=== PATIENT | female | born 1955 | race African-American/Black ===

== ENCOUNTER 2019-06-08 15:07 | Emergency (ER) | payer OTHER ==
--- NOTE | 2019-06-08 17:37 | RAD ---
SACRUM AND COCCYX THREE VIEWS: History: Pain following an injury. FINDINGS: Extensive hardware stabilizing the lumbosacral spine and SI joints. No evidence for an acute fracture or dislocation demonstrated. IMPRESSION: Extensive hardware. No evidence for acute fracture or dislocation. POS: [facility]
--- NOTE | 2019-06-08 17:39 | RAD ---
LUMBAR SPINE THREE VIEWS: History: Injury following a fall with chronic back pain. FINDINGS: Very extensive pedicle screws and rods stabilize the spine from T9 to S2, as well as, intradiscal pro sthesis and anterior post-operative changes at L5, L4, and L3. No acute fracture or dislocation. IMPRESSION: Very extensive hardware of the lower thoracic spine, lumbar spine, and sacrum. No overt acute fractur e or dislocation. POS: [facility]
--- NOTE | 2019-06-08 17:41 | RAD ---
RIGHT ANKLE THREE VIEWS: History: Injury from a fall. FINDINGS: Extensive diffuse soft tissue swelling/fullness of the lower leg, ankle, and visualized foot. No acut e fracture or dislocation. IMPRESSION: Extensive soft tissue swelling without fracture or dislocation. POS: [facility]
--- NOTE | 2019-06-08 17:41 | RAD ---
LEFT ANKLE THREE VIEWS: History: Injury following a fall. FINDINGS: Diffuse soft tissue fullness and swelling of the lower leg and ankle. No acute fracture or dislocatio n. IMPRESSION: Diffuse soft tissue swelling without acute fracture or dislocation. POS: [facility]
== END 2019-06-08 18:02 | disposition home or self-care (01) ==
LOC: ERS 15:07
DX: M54.5 Low back pain (principal); I10 Essential (primary) hypertension; K21.9 Gastro-esophageal reflux disease without esophagitis; W07.XXXA Fall from chair, initial encounter
CPT/HCPCS: 72100; 72220

== ENCOUNTER 2019-06-21 11:27 | Inpatient (IN) | payer OTHER ==
[2019-06-21] MEDS ORDERED: Acetaminophen 500 MG TAB ONE (12:10)
--- NOTE | 2019-06-21 12:29 | RAD ---
LEFT KNEE FOUR VIEWS: HISTORY: Fall. Left knee pain. FINDINGS: Mild degenerative changes are present. No acute fracture or dislocation is identified. No joint eff usion is seen. POS: [facility]
--- NOTE | 2019-06-21 12:30 | RAD ---
RIGHT KNEE FOUR VIEWS: HISTORY: Fall. Right knee pain. FINDINGS: Degenerative changes are present. No acute fracture or dislocation is identified. No joint effusion is seen. POS: [facility]
--- NOTE | 2019-06-21 12:31 | RAD ---
LEFT HIP TWO VIEWS: HISTORY: Trauma. Fall. Left hip pain. FINDINGS: No acute fracture or dislocation is seen. There are postop changes of metallic hardware in the lumba r spine, the sacrum, and the left iliac bone. POS: [facility]
--- NOTE | 2019-06-21 12:33 | RAD ---
RIGHT FOREARM TWO VIEWS: HISTORY: Fall. Right forearm pain. FINDINGS: The right radius and ulna are intact. POS: [facility]
--- NOTE | 2019-06-21 12:34 | CT ---
CT head without contrast: Multiple axial tomograms obtained through the head without IV enhancement. INDICATIONS: Fall with injury to head COMPARISON: None FINDINGS: Ventricles have normal size and position. No evidence of intracranial mass, hemorrhage, edema, or infarct. Visualized sinuses and mastoids appear clear. Bony calvarium appears unremarkable. Small scalp hematoma over the left frontal bone. IMPRESSION: No acute finding
[2019-06-21 13:09] LABS: #Eosinphils 0.1 thou/uL (0.0-0.7); #Lymphocytes 0.9 thou/uL (1.20-3.40); #Monocytes 0.4 thou/uL (0.11-0.59); #Neutrophils 3.3 thou/uL (1.40-6.50); %Basophils 0.2 % (0.0-1.0); %Eosinophils 1.7 % (0.0-10.0); %Lymphocytes 19.2 % (21.0-51.0); %Monocytes 7.9 % (0.0-10.0); %Neutrophils 70.9 % (42.0-75.0); Hemoglobin 11.6 g/dL (12.0-16.0); Mean Corpuscular HGB CONC 31.9 g/dL (32.0-36.0); Mean Corpuscular Hemoglobin 28.2 pg (27.0-31.0); Mean Corpuscular Volume 88.5 fL (78.0-98.0); Mean Platelet Volume 7.1 fL (7.4-10.4); Platelet Count 202 thou/uL (130-400); RBC Distribution Width 11.5 % (11.5-14.5); Red Blood Cell (RBC) Count 4.12 mill/uL (4.20-5.40); White Blood Cell (WBC) Count 4.6 thou/uL (4.8-10.8)
[2019-06-21 14:07] LABS: ALT (SGPT) 20 U/L (8-55); AST (SGOT) 40 U/L (5-34); Acetaminophen Less than 6.0 mcg/mL (10.0-30.0); Albumin 3.7 g/dL (3.4-4.8); Alcohol Less than 10 mg/dL (Less than 10); Alkaline Phosphatase 73 U/L (40-150); Anion Gap 14 mmol/L (10-20); BUN (Urea Nitrogen) 14 mg/dL (9.8-20.1); Bilirubin, Total 1.3 mg/dL (0.2-1.2); CK (CPK) 1606 U/L (29-168); Calc. Creatinine Clearance 0 mL/min (70-130); Carbon Dioxide 21 mmol/L (23-31); Chloride 107 mmol/L (98-107); Estimated GFR-MDRD 89; Glucose 74 mg/dL (80-115); Potassium 3.1 mmol/L (3.5-5.1); Protein, Total 5.7 g/dL (6.0-8.3); Salicylate Less than 8.0 mg/dL (15.0-30.0); Sodium 139 mmol/L (136-145)
[2019-06-21] MEDS ORDERED: Ondansetron ODT 4 MG TAB PO PRN (16:24)
[2019-06-21] MEDS ORDERED: Ondansetron PF 4 MG/2 ML Vial IVP PRN (16:24)
[2019-06-21] MEDS ORDERED: hydrALAZINE 20 MG/ML VIAL SLOW IVP PRN (16:24)
[2019-06-21] MEDS ORDERED: Acetaminophen 325 MG TAB PO PRN (16:24)
[2019-06-21 16:33] VITALS: BMI 30.9
[2019-06-21] MEDS: Sodium Chloride 0.9% 1,000 ML IV SCH (17:34)
[2019-06-21] MEDS ORDERED: Potassium Chloride 20 MEQ TAB PO SCH (18:45)
--- NOTE | 2019-06-21 18:57 | CON ---
DATE OF CONSULTATION: REASON FOR CONSULTATION: Rhabdomyolysis. HISTORY OF PRESENT ILLNESS: This is a 64-year-old female, admitted to the hospital for frequent fall. The patient was noted to have a CK of 1600 after falls. The patient denies no headache, numbness, tingling, or weakness. Denies any nausea, vomiting, or chest pain. PAST MEDICAL HISTORY: Significant for hypertension, history of fall, history of chronic back pain, history of back surgery, history of cholecystectomy, and tubal ligation. SOCIAL HISTORY: No alcohol or drug use. FAMILY HISTORY: Negative for ESRD. ALLERGIES: REVIEWED. MEDICATIONS: Home medications list reviewed. Hospital medication list reviewed. REVIEW OF SYSTEMS: A 15-point review of systems was performed, negative except for positives noted above. GENERAL: HEAD: NECK: No swelling or lumps. NOSE: No epistaxis or discharge. EYES: No diplopia or pain. RESPIRATORY: CARDIOVASCULAR: GASTROINTESTINAL: /LAUNDRY AGENT: MUSCULOSKELETAL: No joint pain. NEUROPSYCHIATIC SYSTEMS: No suicidal ideation. No ideation. SKIN: Denies any rash or ulcer. CONSTITUTIONAL: No fever or chills. PHYSICAL EXAMINATION: CONSTITUTIONAL: The patient is awake and alert. VITAL SIGNS: Pulse 77, breathing 16, and blood pressure 180/82. GENERAL APPEARANCE AND MENTAL STATUS: Fair. HEAD/NECK: Normocephalic. Atraumatic. EYES: EOMI. No deformity. EARS: Clear. No ulcers. NOSE: Intact. No lesions. MOUTH: Clear. No discharge. THROAT: Clear. No exudate. LUNGS: Clear. No crackles. CARDIAC: S1, S2. No rub. ABDOMEN: Benign. Bowel sounds positive. GENITALIA/RECTUM: Garces absent. BACK/EXTREMITIES: Edema 0+. NEUROLOGICAL: Alert and motor intact. SKIN: LYMPHATICS: LABORATORY DATA: Labs show hemoglobin 9.6. Potassium 3.1 and creatinine 0.79. ASSESSMENT AND PLAN: 1. Acute kidney injury, stable. 2. Rhabdomyolysis, due to falls. Recommend hydration. 3. Hypokalemia, recommend 40 mEq of potassium by mouth. 4. Medication based on GFR. Avoid Mobic if clinically indicated. No indication for dialysis. We would recommend continuing normal saline at 100 mL/h. Job ID: [id number]
--- NOTE | 2019-06-21 21:27 | HP ---
PRIMARY CARE PHYSICIAN: Dr. Jostin Jara. CHIEF COMPLAINT: "My legs are getting weak and I fell." HISTORY OF PRESENT ILLNESS: Ms. Lesia Bowen is a pleasant 64-year-old female, who has a history of hypertension and chronic hypokalemia, who also has a history of back problems and fairly recent back surgery back in August of last year. She lives at home primarily on her own and says that she has been having difficulty with her walking in the last 3 months. She says that she has trouble picking up her legs and occasionally she will fall. After she had a redo back surgery in August of 2018, she was actually doing better. Prior to this, she said she was walking bent over after having surgery on her back a few years ago, and then she went to [place] and had what her sister says was a total reconstruction of her back and was doing much better, but then in the last 3 months, her legs have gotten progressively weaker and she has difficulty lifting them and she has been falling. She had been walking with a cane and now is walking with a Rollator walker. She fell again today and was not able to get up for some time. She was brought to the hospital via EMS, where she was found to have an elevated CK as well as low potassium, which is chronically low, and is being admitted for further treatment. The patient denies having any pain in her back, but she does complain of a burning sensation in her feet like her feet are on fire and she says the left is more so than the right. She also complains of swelling in her legs as well, and she says that her primary care physician was in the process of sending her to see a vein specialist in [place], but she did not make it to that appointment because she "got sick." She also was seen in [place] yesterday because she says she had not been eating and had been confused and seeing things that were not there. However, she says she does not think it is an [facility] problem. REVIEW OF SYSTEMS: CONSTITUTIONAL: There have been no fevers or chills, no night sweats, no weight loss. HEENT: She does have an occasional headache after the fall. No visual changes. No sore throat, rhinorrhea, or neck pain. No adenopathy. PULMONARY: No hemoptysis. No cough. No wheezing. CARDIOVASCULAR: She denies any chest pain. No shortness of breath. No PND. No orthopnea. GASTROINTESTINAL: No abdominal pain. No nausea. No vomiting. No change in bowels. GENITOURINARY: No urinary frequency, but she has not made any urine all day today. Prior to that, she denied any urinary retention. No change in bowels. MUSCULOSKELETAL: She complains of both legs being weak, the left more so than the right, and pain in her feet, but no back pain. NEUROLOGIC: She denies any focal weakness, but her sister said she had seizures in her youth and also some type of weakness that they said could have been a stroke, but then everything got better except for her "hearing." SKIN AND INTEGUMENT: No skin changes. No rash. ENDOCRINE: No heat or cold intolerance. PAST MEDICAL HISTORY: Significant for hypertension, hyperlipidemia, TIA, hypokalemia, and schizophrenia, but she says "she has grown out of this." PAST SURGICAL HISTORY: Includes cholecystectomy, right eye surgery, bilateral tubal ligation, and lumbar surgery x2. ALLERGIES: CODEINE, WHICH CAUSED NAUSEA AND HER TO FEEL SHAKY. SOCIAL HISTORY: She lives alone. She had a son who used to live with her, but he has not been there in over a year and a half. She is a nonsmoker and nondrinker. She walks with a walker. FAMILY HISTORY: Significant for mental illness in a brother who had cancer as well as diabetes. CURRENT MEDICATIONS: Include; 1. Lasix 40 mg daily. 2. Pantoprazole 40 mg daily. 3. Meloxicam 15 mg daily. 4. Spironolactone 50 mg daily. 5. Gabapentin 300 mg. 6. Cyclobenzaprine. 7. Tramadol 50 mg as directed. PHYSICAL EXAMINATION: VITAL SIGNS: Her blood pressure was 170/114, heart rate 75, respiratory rate of 18, temperature is 99.1. HEENT: Pupils are equal, round, and reactive. Extraocular muscles are intact. Her sclerae are anicteric. Throat; no erythema, no exudates. NECK: No adenopathy. No bruits. LUNGS: Clear to auscultation. There is no wheezing, no rales, no rhonchi. CARDIOVASCULAR: She has a normal S1 and S2. I did not appreciate an S3 or S4. No murmurs, clicks, or rubs. ABDOMEN: Obese. It is soft, nontender, and nondistended. Positive for bowel sounds. There is no rebound. No guarding. No organomegaly. EXTREMITIES: She has 2+ pitting edema in both lower extremities. No calf tenderness. No significant joint effusions or redness or warmth. NEUROLOGIC: She is moving all of her extremities. Her muscle strength is 5/5 in both her upper and lower extremities. Initially, her legs appeared weak, but if she is distracted, it appears as if it is more related to effort than actual weakness. Her reflexes are 2+ and symmetric. She had palpable dorsalis pedis pulses bilaterally. SKIN AND INTEGUMENT: Other than some chronic venous stasis changes, there are no rashes other than some mycotic nails on her toes. LABORATORY RESULTS: Sodium is 139, potassium 3.1, chloride is 107, CO2 is 21, BUN of 14, creatinine 0.79, glucose is 74. White blood cell count is 4.6, hemoglobin 11.6, hematocrit is 36.5, and platelet count is 202. Her tox screen was negative. She had x-rays of the forearm, hip, and both knees, which showed some mild DJD, but no fractures. CT scan of the brain was negative. ASSESSMENT: 1. This is a pleasant 64-year-old female, who presents to the emergency room with frequent falls and what she describes as progressive lower extremity weakness, this in the setting of having several lumbar surgeries in the past. I think it is reasonable to re-image her back either with a CT or MRI to make sure there is no significant derangement in the lumbar spine that would require being addressed. 2. Persistent hypokalemia, in review of her labs, this dates back as far as 2013 in our records and the concern is for chronic renal insufficiency as a result of this persistent hypokalemia and whether or not it could be some type of hyper-aldosterone type syndrome. We will consult Nephrology to furniture mover helper in diagnosis and management. This may have well been addressed in the past, but I cannot see this in her records and the patient was unable to give me this history. 3. Persistent elevated CK, again unclear the etiology of this, possibly could have been evaluated in the past. We will hydrate her and consider some type of myopathy. 4. Hypertension. It does not appear that she is on any medications for blood pressure. We will need to hold the Lasix and the Aldactone. We will place her on some p.r.n. medications for blood pressure at this time, and we may need to obtain her records from Dr. Jara. 5. She will be placed on deep venous thrombosis as well as gastrointestinal prophylaxis. Job ID: [id number]
[2019-06-22] MEDS: Sodium Chloride 0.9% 1,000 ML IV SCH ×3 (01:45→22:08)
[2019-06-22 05:27] LABS: #Eosinphils 0.1 thou/uL (0.0-0.7); #Lymphocytes 1.1 thou/uL (1.20-3.40); #Monocytes 0.2 thou/uL (0.11-0.59); #Neutrophils 1.6 thou/uL (1.40-6.50); %Basophils 0.7 % (0.0-1.0); %Eosinophils 2.7 % (0.0-10.0); %Lymphocytes 36.7 % (21.0-51.0); %Monocytes 6.2 % (0.0-10.0); %Neutrophils 53.8 % (42.0-75.0); Hemoglobin 10.1 g/dL (12.0-16.0); Mean Corpuscular HGB CONC 33.8 g/dL (32.0-36.0); Mean Corpuscular Volume 88.7 fL (78.0-98.0); Mean Platelet Volume 7.2 fL (7.4-10.4); Platelet Count 159 thou/uL (130-400); RBC Distribution Width 11.3 % (11.5-14.5); Red Blood Cell (RBC) Count 3.36 mill/uL (4.20-5.40); White Blood Cell (WBC) Count 2.9 thou/uL (4.8-10.8)
[2019-06-22 05:47] LABS: Anion Gap 11 mmol/L (10-20); BUN (Urea Nitrogen) 10 mg/dL (9.8-20.1); CK (CPK) 1127 U/L (29-168); Calc. Creatinine Clearance 99 mL/min (70-130); Calcium 8.5 mg/dL (7.8-10.44); Carbon Dioxide 22 mmol/L (23-31); Chloride 111 mmol/L (98-107); Estimated GFR-MDRD Greater than 90; Glucose 95 mg/dL (80-115); Potassium 3.2 mmol/L (3.5-5.1); Sodium 141 mmol/L (136-145)
[2019-06-22] MEDS: Enoxaparin Sodium 40 MG/0.4 ML SYRINGE SC SCH (07:45)
--- NOTE | 2019-06-22 13:03 | PRG ---
DATE OF SERVICE: 06/22/2019 SUBJECTIVE: A 64-year-old female, being seen for rhabdomyolysis and hyperkalemia. The patient denies any nausea, vomiting, or chest pain. OBJECTIVE: CONSTITUTIONAL: The patient is awake and alert. VITAL SIGNS: Pulse 74, breathing 16, and blood pressure 106/77. GENERAL APPEARANCE AND MENTAL STATUS: Fair. HEAD/NECK: Normocephalic. Atraumatic. EYES: EOMI. No deformity. EARS: Clear. No ulcers. NOSE: Intact. No lesions. MOUTH: Clear. No discharge. THROAT: Clear. No exudate. LUNGS: Clear. No crackles. CARDIAC: S1, S2. No rub. ABDOMEN: Benign. Bowel sounds positive. GENITALIA/RECTUM: Garces absent. BACK/EXTREMITIES: Edema 0+. NEUROLOGICAL: Alert and motor intact. SKIN: LYMPHATICS: LABORATORY DATA: Reviewed. ASSESSMENT AND PLAN: 1. Hypokalemia. We will give 40 mEq of potassium. 2. We will also check a magnesium level and aldosterone level. 3. Rhabdomyolysis, improving. 4. Anemia, stable. 5. Chronic kidney disease, stage 1, stable. 6. Medication based on GFR appropriate. Job ID: [id number]
--- NOTE | 2019-06-22 14:04 | PDOC.HOSPP ---
- Subjective Encounter Date: 06/22/19 Encounter Time: 12:30 Subjective: Ms. Bowen was seen today in follow-up of hypokalemia, frequent falls, and rhabdo. She says she feels a little better this afternoon. She says her legs are a little stronger. She still admits to burning pain in the bottom of her feet. - Objective Vital Signs & Weight: Vital Signs (12 hours) Temp Pulse Resp BP BP Pulse Ox 06/22/19 11:28 98.2 F 73 18 106/77 91 L 06/22/19 08:00 94 L 06/22/19 06:56 98.2 F 73 18 106/71 91 L 06/22/19 04:38 98.6 F 67 20 156/80 H 93 L Weight Weight 180 lb Result Diagrams: 06/22/19 04:46 06/22/19 04:46 ROS - Medication Medications: Active Medications Generic Name Dose Route Start Last Admin Trade Name Freq PRN Reason Stop Dose Admin Acetaminophen 650 mg 06/21/19 16:24 06/21/19 17:46 Tylenol PO 650 mg Q4H PRN Administration Headache/Fever/Mild Pain (1-3) Enoxaparin Sodium 40 mg 06/22/19 09:00 06/22/19 07:45 Lovenox SC 40 mg 0900 ARIANA Administration Sodium Chloride 1,000 mls @ 100 mls/hr 06/21/19 16:24 06/22/19 11:52 Normal Saline 0.9% IV 1,000 mls .Q10H [facility] Administration - Exam Eye: PERRL, anicteric sclera Heart: RRR, no murmur, no gallops, no rubs, normal peripheral pulses Respiratory: CTAB, no wheezes, no rales, no ronchi, normal chest expansion, no tachypnea, normal percussion Gastrointestinal: soft, normal bowel sounds Extremities: no cyanosis, no clubbing, 1+ LE edema (bilateral lower extremity edema- improved from yesterday) Hosp A/P (1) Hypokalemia Code(s): E87.6 - HYPOKALEMIA Status: Acute (2) Lumbar disc disease Code(s): M51.9 - UNSP THORACIC, THORACOLUM AND LUMBOSACR INTVRT DISC DISORDER Status: Acute (3) Frequent falls Code(s): R29.6 - REPEATED FALLS Status: Acute (4) HTN (hypertension) Code(s): I10 - ESSENTIAL (PRIMARY) HYPERTENSION Status: Chronic Qualifiers: Hypertension type: essential hypertension Qualified Code(s): I10 - Essential (primary) hypertension - Plan * Hypokalemia- this is chronic- discussed with Dr. Liu- work-up is in progress * Frequent Falls- ? related to lumbar disc disease- MRI is pending * Mild Rhabdo- could be due to hypokalemia- continue to replace K+ * HTN- blood pressure is much improved * Weakness- will start PT, once MRI results are known
[2019-06-23] MEDS ORDERED: Cyclobenzaprine 10 MG TAB PO PRN ×2 (08:10→11:13)
[2019-06-23] MEDS: Enoxaparin Sodium 40 MG/0.4 ML SYRINGE SC SCH (08:49)
[2019-06-23] MEDS: Spironolactone 25 MG TAB PO SCH (08:50)
[2019-06-23] MEDS: Sodium Chloride 0.9% 1,000 ML IV SCH ×2 (08:50→17:12)
[2019-06-23] MEDS ORDERED: Non-Formulary Item 1 EACH (Spironolactone [Spironolactone] 50 MG) PO SCH (09:00)
[2019-06-23] MEDS ORDERED: Gabapentin 300 MG CAP PO SCH ×2 (09:00→21:00)
[2019-06-23 10:01] LABS: Anion Gap 13 mmol/L (10-20); BUN (Urea Nitrogen) 9 mg/dL (9.8-20.1); Calc. Creatinine Clearance 99 mL/min (70-130); Calcium 9.2 mg/dL (7.8-10.44); Carbon Dioxide 26 mmol/L (23-31); Chloride 104 mmol/L (98-107); Estimated GFR-MDRD Greater than 90; Glucose 76 mg/dL (80-115); Sodium 140 mmol/L (136-145)
[2019-06-23 10:08] LABS: Potassium 2.8 mmol/L (3.5-5.1)
--- NOTE | 2019-06-23 10:48 | PDOC.HOSPP ---
- Subjective Encounter Date: 06/23/19 Encounter Time: 10:47 Subjective: Ms. Bowen was seen today in follow-up of leg pain and frequent falls. She continues to complain of some pain in her legs, and feet. No new complaints. MRI was not done due to " too much hardware in her back". - Objective Vital Signs & Weight: Vital Signs (12 hours) Temp Pulse Resp BP Pulse Ox 06/23/19 08:00 94 L 06/23/19 07:23 98.6 F 67 20 173/96 H 94 L Weight Weight 180 lb I&O: 06/22/19 06/23/19 06/24/19 06:59 06:59 06:59 Intake Total 3780 Output Total 4700 Balance -920 Result Diagrams: 06/22/19 04:46 06/23/19 09:31 ROS - Medication Medications: Active Medications Generic Name Dose Route Start Last Admin Trade Name Freq PRN Reason Stop Dose Admin Acetaminophen 650 mg 06/21/19 16:24 06/21/19 17:46 Tylenol PO 650 mg Q4H PRN Administration Headache/Fever/Mild Pain (1-3) Enoxaparin Sodium 40 mg 06/22/19 09:00 06/23/19 08:49 Lovenox SC 40 mg 0900 [facility] Administration Gabapentin 300 mg 06/23/19 09:00 06/23/19 08:49 Neurontin PO 300 mg BID [facility] Administration Sodium Chloride 1,000 mls @ 100 mls/hr 06/21/19 16:24 06/23/19 08:50 Normal Saline 0.9% IV Not Given .Q10H [facility] Pantoprazole Sodium 40 mg 06/23/19 09:00 06/23/19 08:50 Protonix PO 40 mg DAILY [facility] Administration Sodium Chloride 10 ml 06/23/19 09:00 06/23/19 08:50 Flush - Normal Saline IVF Not Given Q12HR [facility] Spironolactone 50 mg 06/23/19 08:00 06/23/19 08:50 Aldactone PO 50 mg QAM-WM [facility]ANA Administration - Exam Eye: PERRL Heart: RRR, no murmur, no gallops, no rubs, normal peripheral pulses Respiratory: CTAB, no wheezes, no rales, no ronchi, normal chest expansion Gastrointestinal: soft, non-tender, non-distended, normal bowel sounds, no palpable masses, no hepatomegaly, no splenomegaly Extremities: no cyanosis, no clubbing, 1+ LE edema (edema has improved + varicose veins, good D.P. pulses bilaterally) Skin: normal turgor, no lesions Hosp A/P (1) Hypokalemia Code(s): E87.6 - HYPOKALEMIA Status: Acute (2) Lumbar disc disease Code(s): M51.9 - UNSP THORACIC, THORACOLUM AND LUMBOSACR INTVRT DISC DISORDER Status: Acute (3) Frequent falls Code(s): R29.6 - REPEATED FALLS Status: Acute (4) HTN (hypertension) Code(s): I10 - ESSENTIAL (PRIMARY) HYPERTENSION Status: Chronic Qualifiers: Hypertension type: essential hypertension Qualified Code(s): I10 - Essential (primary) hypertension - Plan * Hypokalemia- this is chronic- serum aldosterone is pending * Frequent Falls- This may be in part due to medications. Unclear if she is taking Tramadol and Flexeril correctly. MRI was cancelled due to too much hardware in her back. Will have PT/OT due an evaluation. She does not have any worrisome neurological findings which would necessitate urgent MRI. She would best be served by seeing the Orthodist in [place] who performed the most recent Surgery. She would also benefit by seeing an Neurologist who could perform an EMG to test for Peripheral Neuropathy. This can all be achieved outpatient, which I explained to the patient's sister and MPOA on admission. ( EMG's are not performed in hospital at this facility * Mild Rhabdo- could be due to hypokalemia- continue to replace K+ * HTN- blood pressure is much improved * Weakness- will start PT * Home after Potassium level has improved
[2019-06-23] MEDS: Potassium Chloride 20 MEQ TAB PO SCH ×2 (12:27→17:11)
[2019-06-23] MEDS ORDERED: Gabapentin 100 MG CAP PO SCH (22:30)
[2019-06-23] MEDS: traMADol HCl 50 MG TAB PO PRN (22:54)
[2019-06-24] MEDS: Sodium Chloride 0.9% 1,000 ML IV SCH ×3 (06:32→21:19)
[2019-06-24 06:56] LABS: Anion Gap 11 mmol/L (10-20); BUN (Urea Nitrogen) 11 mg/dL (9.8-20.1); Calc. Creatinine Clearance 103 mL/min (70-130); Carbon Dioxide 23 mmol/L (23-31); Chloride 108 mmol/L (98-107); Estimated GFR-MDRD Greater than 90; Glucose 86 mg/dL (80-115); Potassium 3.6 mmol/L (3.5-5.1); Sodium 138 mmol/L (136-145)
[2019-06-24] MEDS: Spironolactone 25 MG TAB PO SCH (08:29)
[2019-06-24] MEDS: Enoxaparin Sodium 40 MG/0.4 ML SYRINGE SC SCH (08:29)
[2019-06-24] MEDS: traMADol HCl 50 MG TAB PO PRN ×2 (08:30→18:42)
[2019-06-24] MEDS: Potassium Chloride 20 MEQ TAB PO SCH ×3 (08:30→17:45)
[2019-06-24] MEDS: Gabapentin 100 MG CAP PO SCH ×2 (08:30→21:19)
--- NOTE | 2019-06-24 18:03 | PDOC.HOSPP ---
- Subjective Encounter Date: 06/24/19 Encounter Time: 13:20 Subjective: Ms. Bowen was seen today in follow-up of leg weakness. She does not have any complaints today. - Objective Vital Signs & Weight: Vital Signs (12 hours) Temp Pulse Resp BP Pulse Ox 06/24/19 16:00 97.7 F 68 20 169/95 H 98 06/24/19 11:41 97.6 F 73 20 162/96 H 96 06/24/19 08:00 94 L 06/24/19 07:25 97.7 F 63 20 170/93 H 94 L Weight Weight 180 lb I&O: 06/23/19 06/24/19 06/25/19 06:59 06:59 06:59 Intake Total 3780 1200 Output Total 4700 1700 2900 Balance -920 -1700 -1700 Result Diagrams: 06/22/19 04:46 06/24/19 06:14 ROS - Medication Medications: Active Medications Generic Name Dose Route Start Last Admin Trade Name Freq PRN Reason Stop Dose Admin Acetaminophen 650 mg 06/21/19 16:24 06/21/19 17:46 Tylenol PO 650 mg Q4H PRN Administration Headache/Fever/Mild Pain (1-3) Enoxaparin Sodium 40 mg 06/22/19 09:00 06/24/19 08:29 Lovenox SC 40 mg 0900 ARIANA Administration Gabapentin 100 mg 06/24/19 09:00 06/24/19 08:30 Neurontin PO 100 mg BID [facility] Administration Sodium Chloride 1,000 mls @ 100 mls/hr 06/21/19 16:24 06/24/19 12:19 Normal Saline 0.9% IV 1,000 mls .Q10H [facility] Administration Pantoprazole Sodium 40 mg 06/23/19 09:00 06/24/19 08:30 Protonix PO 40 mg DAILY ARIANA Administration Potassium Chloride 40 meq 06/23/19 12:00 06/24/19 17:45 K-Dur PO 40 meq TID-WM ARIANA Administration Sodium Chloride 10 ml 06/23/19 09:00 06/24/19 08:30 Flush - Normal Saline IVF Not Given Q12HR [facility] Spironolactone 50 mg 06/23/19 08:00 06/24/19 08:29 Aldactone PO 50 mg QAM-WM [facility] Administration Tramadol HCl 50 mg 06/23/19 10:45 06/24/19 08:30 Ultram PO 50 mg Q6H PRN Administration Moderate to Severe Pain (6-10) - Exam Eye: PERRL, anicteric sclera Heart: RRR, no murmur, no gallops, no rubs, normal peripheral pulses Respiratory: CTAB, no wheezes, no rales, no ronchi, normal chest expansion Gastrointestinal: soft, non-tender, non-distended, normal bowel sounds, no palpable masses, no hepatomegaly, no splenomegaly, no bruit, no guarding Extremities: no cyanosis, no clubbing, 1+ LE edema (+ edema both lower extremities, + varicose veins) Musculoskeletal: normal strength, no muscle wasting Hosp A/P (1) Hypokalemia Code(s): E87.6 - HYPOKALEMIA Status: Resolved (2) Lumbar disc disease Code(s): M51.9 - UNSP THORACIC, THORACOLUM AND LUMBOSACR INTVRT DISC DISORDER Status: Acute (3) Frequent falls Code(s): R29.6 - REPEATED FALLS Status: Acute (4) HTN (hypertension) Code(s): I10 - ESSENTIAL (PRIMARY) HYPERTENSION Status: Chronic Qualifiers: Hypertension type: essential hypertension Qualified Code(s): I10 - Essential (primary) hypertension - Plan * Hypokalemia- this is chronic- serum aldosterone is pending- level is normal today- continue scheduled potassium supplementation * Frequent Falls- Continue PT/OT- I asked her sister to bring in the phine number of her physician in [place], and she could leave it in the room, or leave with the nurse if she was not able to personally come in. She has not yet done this. She did later bring in the name of the physician but not his phone number. The patient herself tells me that the physician in [place] had referred to PT in [place], but she was dropped them, because she was not able to make all the appointments due to transportation issues. At this point- this clearly appears to be a chronic condition, it may be progressive- no other urgent work- up is needed in the hospital- and will pursue penitentiary placement or Rehab * Mild Rhabdo- could be due to hypokalemia- continue to replace K+ * HTN- blood pressure is much improved * Weakness- continue PT
[2019-06-25 06:15] LABS: Anion Gap 12 mmol/L (10-20); BUN (Urea Nitrogen) 10 mg/dL (9.8-20.1); Calc. Creatinine Clearance 100 mL/min (70-130); Calcium 9.5 mg/dL (7.8-10.44); Carbon Dioxide 21 mmol/L (23-31); Chloride 107 mmol/L (98-107); Estimated GFR-MDRD Greater than 90; Glucose 86 mg/dL (80-115); Potassium 4.2 mmol/L (3.5-5.1); Sodium 136 mmol/L (136-145)
[2019-06-25] MEDS: Spironolactone 25 MG TAB PO SCH (09:28)
[2019-06-25] MEDS: Gabapentin 100 MG CAP PO SCH ×2 (09:28→20:28)
[2019-06-25] MEDS: Potassium Chloride 20 MEQ TAB PO SCH ×2 (09:28→12:35)
[2019-06-25] MEDS: Enoxaparin Sodium 40 MG/0.4 ML SYRINGE SC SCH (09:29)
[2019-06-25] MEDS: Sodium Chloride 0.9% 1,000 ML IV SCH ×2 (09:30→20:27)
[2019-06-25] MEDS: traMADol HCl 50 MG TAB PO PRN (12:44)
--- NOTE | 2019-06-25 15:23 | PDOC.HOSPP ---
- Subjective Encounter Date: 06/25/19 Encounter Time: 15:14 Subjective: Ms. Bowen was seen today in follow -up of Frequent falls. She does not have any new complaints today. - Objective Vital Signs & Weight: Vital Signs (12 hours) Temp Pulse Resp BP Pulse Ox 06/25/19 07:39 98.1 F 67 20 159/93 H 93 L Weight Weight 180 lb I&O: 06/24/19 06/25/19 06/26/19 06:59 06:59 06:59 Intake Total 1200 1200 Output Total 1700 2900 1900 Balance -1700 -1700 -700 Result Diagrams: 06/22/19 04:46 06/25/19 05:31 ROS - Medication Medications: Active Medications Generic Name Dose Route Start Last Admin Trade Name Freq PRN Reason Stop Dose Admin Acetaminophen 650 mg 06/21/19 16:24 06/21/19 17:46 Tylenol PO 650 mg Q4H PRN Administration Headache/Fever/Mild Pain (1-3) Enoxaparin Sodium 40 mg 06/22/19 09:00 06/25/19 09:29 Lovenox SC 40 mg 0900 ARIANA Administration Gabapentin 100 mg 06/24/19 09:00 06/25/19 09:28 Neurontin PO 100 mg BID ARIANA Administration Sodium Chloride 1,000 mls @ 100 mls/hr 06/21/19 16:24 06/25/19 09:30 Normal Saline 0.9% IV 1,000 mls .Q10H ARIANA Administration Pantoprazole Sodium 40 mg 06/23/19 09:00 06/25/19 09:28 Protonix PO 40 mg DAILY ARIANA Administration Potassium Chloride 40 meq 06/23/19 12:00 06/25/19 12:35 K-Dur PO 40 meq TID-WM ARIANA Administration Sodium Chloride 10 ml 06/23/19 09:00 06/25/19 09:29 Flush - Normal Saline IVF Not Given Q12HR ARIANA Spironolactone 50 mg 06/23/19 08:00 06/25/19 09:28 Aldactone PO 50 mg QAM-WM ARIANA Administration Tramadol HCl 50 mg 06/23/19 10:45 06/25/19 12:44 Ultram PO 50 mg Q6H PRN Administration Moderate to Severe Pain (6-10) - Exam Eye: PERRL, anicteric sclera Heart: RRR, no murmur, no gallops, no rubs Respiratory: CTAB, no wheezes, no rales, no ronchi, normal chest expansion Gastrointestinal: soft, non-tender, non-distended, normal bowel sounds, no palpable masses, no hepatomegaly Extremities: no cyanosis, no clubbing, 1+ LE edema (+ lower extremity edema in both legs) Neurological: CN's grossly intact, normal sensation to touch Hosp A/P (1) Hypokalemia Code(s): E87.6 - HYPOKALEMIA Status: Resolved (2) Lumbar disc disease Code(s): M51.9 - UNSP THORACIC, THORACOLUM AND LUMBOSACR INTVRT DISC DISORDER Status: Acute (3) Frequent falls Code(s): R29.6 - REPEATED FALLS Status: Acute (4) HTN (hypertension) Code(s): I10 - ESSENTIAL (PRIMARY) HYPERTENSION Status: Chronic Qualifiers: Hypertension type: essential hypertension Qualified Code(s): I10 - Essential (primary) hypertension - Plan * Hypokalemia- Aldosterone level is jessica. Will continue with supplementation. * Frequent Falls- Continue PT/OT- I spoke with the patient's Orthopedic team in [place]. She saw a Dr. Lewis there, and I spoke with his PA. She says they are willing to take her back in transfer so as to evaluate her Lumbar spine. I have tried to reach her sister, and left a message on her voice mail. If our patient and sister are agreeable, will initiate the transfer * Mild Rhabdo- improved * HTN- blood pressure is stable
[2019-06-26] MEDS: Sodium Chloride 0.9% 1,000 ML IV SCH (03:49)
[2019-06-26 07:37] VITALS: BP 155/88; TEMP 97.6
[2019-06-26] MEDS ORDERED: Potassium Chloride 20 MEQ TAB PO SCH (08:00)
[2019-06-26] MEDS: Spironolactone 25 MG TAB PO SCH (08:43)
[2019-06-26] MEDS: Gabapentin 100 MG CAP PO SCH (08:43)
[2019-06-26] MEDS: Enoxaparin Sodium 40 MG/0.4 ML SYRINGE SC SCH (08:44)
[2019-06-26] MEDS: traMADol HCl 50 MG TAB PO PRN (09:12)
--- NOTE | 2019-06-26 09:47 | DIS ---
DATE OF ADMISSION: 06/21/2019 DATE OF DISCHARGE: 06/26/2019 PRIMARY CARE PHYSICIAN: Jostin Jara MD. DISCHARGE DISPOSITION: [facility] for higher level of care. PRIMARY DISCHARGE DIAGNOSES: Lumbar disk disease with lumbar stenosis with lower extremity weakness and subsequent frequent fall; hypokalemia, corrected; rhabdomyolysis. SECONDARY DISCHARGE DIAGNOSES: Hypertension, chronic lumbar stenosis, chronic low back pain, anemia normocytic normochromic, obesity. PRIMARY PROCEDURE/OPERATION: None. RADIOLOGICAL INVESTIGATION: CT brain, forearm x-ray, hip x-ray, knee x-ray, all x-rays unremarkable. SIGNIFICANT LABORATORY DATA: WBC 2.9, hemoglobin 10.1, platelet 159. Sodium 136, creatinine 0.73, CK 1127, aldosterone less than 1. Serum drug screen negative. DISCHARGE MEDICATION: Prior to arrival, the patient was on following medications: 1. Tramadol 50 mg p.o. q.6 hourly. 2. Flexeril 10 mg t.i.d. p.r.n. 3. Lasix 40 mg daily. 4. Gabapentin 300 mg p.o. b.i.d. 5. Mobic 15 mg daily. 6. Protonix 40 mg daily. 7. Aldactone 50 mg p.o. daily. CONTRAINDICATION: None. CODE STATUS: Full code. 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 Liu consulted while in hospital. TEST RESULTS PENDING ON DISCHARGE: None. ALLERGIES: CODEINE. DISCHARGE PLAN: Posthospital, the patient is planned for discharge to other hospital for higher level of care. HOSPITAL COURSE: A 64-year-old female, who was admitted by Dr. Srinivasan on June 21, 2019. The patient has chronic lumbar stenosis and chronic low back pain. The patient recently had back surgery at other hospital. The patient was having frequent fall and because of that, she was having mild rhabdomyolysis. While in hospital, she had hypokalemia. Her aldosterone level was normal. The patient was hydrated with IV fluid. I noted that the patient was in the hospital on June 21, 2019, till today, and the admitting physician already initiated yesterday to transfer her to [facility] for higher level of care, which has been arranged. I have done paperwork for her discharge. Further care will be decided at [facility] for her back. Doc to doc was already done by Dr. Srinivasan yesterday. Today, I was seeing only first time. I have seen and examined the patient at bedside today. The patient does not have any new complaints. PHYSICAL EXAMINATION: VITAL SIGNS: Currently, temperature 97.6, pulse 66, respiratory rate 18, saturation 94%, and blood pressure 155/88. GENERAL: The patient is currently alert and oriented x3. HEENT: Head; normocephalic, atraumatic. LUNGS: Clear to auscultation without any rhonchi or rales. CARDIAC: S1, S2 regular without any murmur. ABDOMEN: Soft and benign. EXTREMITIES: No edema. NEUROLOGIC: Nonfocal examination. She is able to lift all 4 limbs. Further care will be decided at [facility]. Job ID: [id number]
== END 2019-06-26 10:05 | disposition short-term general hospital (02) | DRG 558 ==
LOC: ERS 11:27 → T4-A 14:48
PROVIDERS: ADMIT Internal Medicine; ATTEND Internal Medicine
DX: M62.82 Rhabdomyolysis (principal); N17.9 Acute kidney failure, unspecified; E87.6 Hypokalemia; E78.5 Hyperlipidemia, unspecified; D63.1 Anemia in chronic kidney disease; F20.9 Schizophrenia, unspecified; R29.6 Repeated falls; M51.9 Unspecified thoracic, thoracolumbar and lumbosacral intervertebral disc disorder; M48.061 Spinal stenosis, lumbar region without neurogenic claudication; N18.1 Chronic kidney disease, stage 1; Z60.2 Problems related to living alone; I12.9 Hypertensive chronic kidney disease with stage 1 through stage 4 chronic kidney disease, or unspecified chronic kidney disease; Z86.73 Personal history of transient ischemic attack (TIA), and cerebral infarction without residual deficits; Z90.49 Acquired absence of other specified parts of digestive tract; Z98.51 Tubal ligation status; Z88.5 Allergy status to narcotic agent; Z79.1 Long term (current) use of non-steroidal anti-inflammatories (NSAID)
CPT/HCPCS: 36415; 70450; 72148; 80048; 80053; 80307; 82088; 82550; 83735; 83880; 84484; 85025; 93005; J1650

== ENCOUNTER 2020-01-09 09:13 | Outpatient (CLI) | payer OTHER ==
--- NOTE | 2020-01-09 15:59 | NM ---
NUCLEAR MEDICINE BRAIN IMAGING: HISTORY: Parkinson's disease TECHNIQUE: A Dino scan with axial tomographic images of the brain was obtained 3 hours following the intravenous administration of 4.2mCi I-123 Ioflupane. The patient was pretreated with 130 mg of oral potassium iodide 1 hour prior to the injection. FINDINGS: There is loss of normal symmetric comma shaped shaped uptake in the striata bilaterally. IMPRESSION: Parkinsonian syndrome. (Parkinsonian syndromes include Parkinson's disease, multiple system atrophy, progressive supranuclea r palsy, dementia with Lewy bodies and cortical basal degeneration).
== END 2020-01-09 09:14 | disposition home or self-care (01) ==
LOC: NM 09:13
PROVIDERS: ATTEND Psychiatry & Neurology Neurology
DX: G20 Parkinson's disease (principal)
CPT/HCPCS: 78803; A9584

== ENCOUNTER 2022-05-09 17:55 | Emergency (ER) | payer MEDICARE, MEDICAID, OTHER ==
[2022-05-09 20:58] LABS: #Eosinphils 0.1 thou/uL (0.0-0.7); #Lymphocytes 1.6 thou/uL (1.20-3.40); #Monocytes 0.4 thou/uL (0.11-0.59); #Neutrophils 3.7 thou/uL (1.40-6.50); %Basophils 0.5 % (0.0-1.0); %Eosinophils 1.7 % (0.0-10.0); %Lymphocytes 27.2 % (21.0-51.0); %Neutrophils 63.6 % (42.0-75.0); Mean Corpuscular HGB CONC 31.4 g/dL (32.0-36.0); Mean Corpuscular Volume 92.2 fL (78.0-98.0); Mean Platelet Volume 7.6 fL (7.4-10.4); Platelet Count 212 thou/uL (130-400); RBC Distribution Width 12.3 % (11.5-14.5); Red Blood Cell (RBC) Count 4.14 mill/uL (4.20-5.40); White Blood Cell (WBC) Count 5.8 thou/uL (4.8-10.8)
[2022-05-09 21:19] LABS: ALT (SGPT) 20 U/L (8-55); AST (SGOT) 19 U/L (5-34); Albumin 4.3 g/dL (3.4-4.8); Alkaline Phosphatase 78 U/L (40-110); Anion Gap 17 mmol/L (10-20); BUN (Urea Nitrogen) 16 mg/dL (9.8-20.1); Bilirubin, Total 0.8 mg/dL (0.2-1.2); Calc. Creatinine Clearance 0 mL/min (70-130); Calcium 9.1 mg/dL (7.8-10.44); Carbon Dioxide 20 mmol/L (23-31); Chloride 107 mmol/L (98-107); Estimated GFR 83; Globulin 2.9 g/dL (2.4-3.5); Glucose 76 mg/dL (80-115); Potassium 3.6 mmol/L (3.5-5.1); Protein, Total 7.2 g/dL (5.8-8.1); Sodium 140 mmol/L (136-145)
[2022-05-09 22:04] LABS: Bacteria/HPF None Seen HPF (None Seen); Bilirubin Negative (Negative); Blood, Urine 2+ (Negative); Clarity Clear (Clear); Glucose, Urine (Dipstick) Normal (Negative); Ketone, Urine Negative (Negative); Leukocyte 250 Leu/uL (Negative); Nitrite Negative (Negative); Protein, Urine (Dipstick) 10 mg/dL (Neg-Trace); RBC/HPF 21-50 HPF (0-3); Specific Gravity, Urine 1.021 (1.002-1.036); Squamous Epithelial 0-3 HPF (0-3); Urobilinogen Normal mg/dL (Less than 2)
== END 2022-05-10 01:34 | disposition short-term general hospital (02) ==
LOC: ERS 17:55
DX: I89.0 Lymphedema, not elsewhere classified (principal); K21.9 Gastro-esophageal reflux disease without esophagitis; I10 Essential (primary) hypertension; G20 Parkinson's disease
CPT/HCPCS: 36415; 80053; 81003; 81015; 83880; 84484; 85025

== ENCOUNTER 2024-10-27 13:27 | Inpatient (IN) | payer MEDICARE, MEDICAID ==
[2024-10-27] MEDS ORDERED: Ondansetron ODT 4 MG TAB PO PRN (18:49)
[2024-10-27] MEDS: Lactated Ringer's 1,000 ML IV SCH (21:00)
[2024-10-28 04:04] LABS: #Basophils 0.03 10x3/uL (0.0-0.2); #Eosinophils Less than 0.03 10x3/uL (0.0-0.7); %Basophils 0.3 % (0.0-1.0); %Eosinophils 0.1 % (0.0-10.0); %Lymphocytes 7.3 % (21.0-51.0); %Monocytes 7.9 % (0.0-10.0); %Neutrophils 83.7 % (42.0-75.0); Hematocrit 38.7 % (36.0-47.0); Hemoglobin 12.5 g/dL (12.0-16.0); Mean Corpuscular HGB CONC 32.3 g/dL (32.0-36.0); Mean Corpuscular Hemoglobin 28.7 pg (27.0-31.0); Mean Corpuscular Volume 88.8 fL (78.0-98.0); Mean Platelet Volume 9.8 fL (7.4-10.4); Platelet Count 207 10x3/uL (130-400); RBC Distribution Width 13.9 % (11.5-14.5); Red Blood Cell (RBC) Count 4.36 mill/uL (4.20-5.40)
[2024-10-28 04:18] LABS: INR-International Normal Ratio 1.3; PTT 30.6 sec (22.9-36.1)
[2024-10-28 04:40] LABS: Phosphorus 2.9 mg/dL (2.3-4.7); Uric Acid 6.7 mg/dL (2.6-6.0)
[2024-10-28 05:41] LABS: ALT (SGPT) 272 U/L (8-55); AST (SGOT) 821 U/L (5-34); Albumin 2.8 g/dL (3.4-4.8); Alkaline Phosphatase 55 U/L (40-110); Anion Gap 15 mmol/L (10-20); BUN (Urea Nitrogen) 23 mg/dL (9.8-20.1); Bilirubin, Total 1.1 mg/dL (0.2-1.2); CK (CPK) Greater than 42670 U/L (29-168); Calc. Creatinine Clearance 102 mL/min (70-130); Calcium 8.6 mg/dL (7.8-10.44); Carbon Dioxide 20 mmol/L (23-31); Chloride 108 mmol/L (98-107); Estimated GFR 83; Glucose 126 mg/dL (80-115); Magnesium 2.2 mg/dL (1.6-2.6); Potassium 4.3 mmol/L (3.5-5.1); Protein, Total 5.8 g/dL (5.8-8.1); Sodium 139 mmol/L (136-145)
[2024-10-28] MEDS: Lactated Ringer's 1,000 ML IV SCH ×8 (06:25→22:01)
[2024-10-28] MEDS: Carbidopa/Levodopa 10-100 mg Tablet PO SCH (08:46)
[2024-10-28] MEDS: Pantoprazole DR 40 MG TAB PO SCH (08:46)
[2024-10-28] MEDS: Methocarbamol 500 MG TAB PO PRN (08:46)
[2024-10-28] MEDS: Sertraline 25 MG TAB PO SCH (08:46)
[2024-10-28] MEDS: Hydrochlorothiazide 25 MG TAB PO SCH (08:46)
[2024-10-28] MEDS: Enoxaparin 40 MG (0.4 mL) SYRINGE SC SCH (08:46)
[2024-10-28] MEDS: Lisinopril 10 MG TAB PO SCH (08:47)
[2024-10-28 11:51] LABS: Amphetamine Not Detected (NotDetected); Bacteria/HPF None Seen HPF (None Seen); Barbiturates Screen Not Detected (NotDetected); Benzodiazepine Screen Not Detected (NotDetected); Cocaine Metabolite Screen Not Detected (NotDetected); Methadone Not Detected (NotDetected); Methamphetamine Not Detected (NotDetected); Opiate Screen Not Detected (NotDetected); Oxycodone Screen Not Detected (NotDetected); Phencyclidine (PCP) Not Detected (NotDetected); Squamous Epithelial None Seen HPF (0-3); THC/Cannabinoid Screen Not Detected (NotDetected); Tricyclic Screen Not Detected (NotDetected); WBC/HPF 0-3 HPF (0-3)
[2024-10-28 13:24] LABS: ALT (SGPT) 122 U/L (8-55); AST (SGOT) 755 U/L (5-34); Albumin 2.7 g/dL (3.4-4.8); Alkaline Phosphatase 48 U/L (40-110); Anion Gap 15 mmol/L (10-20); BUN (Urea Nitrogen) 21 mg/dL (9.8-20.1); CK (CPK) Greater than 42670 U/L (29-168); Calc. Creatinine Clearance 102 mL/min (70-130); Calcium 8.3 mg/dL (7.8-10.44); Carbon Dioxide 18 mmol/L (23-31); Chloride 107 mmol/L (98-107); Estimated GFR 83; Glucose 108 mg/dL (80-115); Potassium 4.9 mmol/L (3.5-5.1); Protein, Total 5.7 g/dL (5.8-8.1); Sodium 135 mmol/L (136-145)
[2024-10-28 21:13] LABS: ALT (SGPT) 238 U/L (8-55); AST (SGOT) 692 U/L (5-34); Albumin 2.6 g/dL (3.4-4.8); Alkaline Phosphatase 45 U/L (40-110); Anion Gap 11 mmol/L (10-20); BUN (Urea Nitrogen) 14 mg/dL (9.8-20.1); Bilirubin, Total 1.1 mg/dL (0.2-1.2); CK (CPK) Greater than 42670 U/L (29-168); Calc. Creatinine Clearance 117 mL/min (70-130); Calcium 8.7 mg/dL (7.8-10.44); Carbon Dioxide 26 mmol/L (23-31); Chloride 110 mmol/L (98-107); Estimated GFR 95; Globulin 2.6 g/dL (2.4-3.5); Glucose 109 mg/dL (80-115); Potassium 4.5 mmol/L (3.5-5.1); Protein, Total 5.2 g/dL (5.8-8.1); Sodium 142 mmol/L (136-145)
[2024-10-28] MEDS: Gabapentin 300 MG CAP PO SCH (22:02)
[2024-10-29] MEDS: Lactated Ringer's 1,000 ML IV SCH ×2 (09:11→15:35)
[2024-10-29] MEDS: Fluticasone Propionate Nasal Spray 16 gm Bottle NASAL SCH (09:11)
[2024-10-29] MEDS: Loratadine 10 MG TAB PO SCH (09:11)
[2024-10-29 10:19] LABS: #Basophils 0.03 10x3/uL (0.0-0.2); %Basophils 0.3 % (0.0-1.0); %Eosinophils 1.3 % (0.0-10.0); %Lymphocytes 11.5 % (21.0-51.0); %Monocytes 6.8 % (0.0-10.0); %Neutrophils 79.3 % (42.0-75.0); Hemoglobin 10.9 g/dL (12.0-16.0); Mean Corpuscular HGB CONC 32.1 g/dL (32.0-36.0); Mean Corpuscular Hemoglobin 28.9 pg (27.0-31.0); Mean Corpuscular Volume 90.2 fL (78.0-98.0); Mean Platelet Volume 9.8 fL (7.4-10.4); Platelet Count 160 10x3/uL (130-400); Red Blood Cell (RBC) Count 3.77 mill/uL (4.20-5.40)
[2024-10-29 11:19] LABS: ALT (SGPT) 158 U/L (8-55); AST (SGOT) 584 U/L (5-34); Albumin 2.6 g/dL (3.4-4.8); Alkaline Phosphatase 45 U/L (40-110); Anion Gap 13 mmol/L (10-20); BUN (Urea Nitrogen) 11 mg/dL (9.8-20.1); Bilirubin, Total 1.1 mg/dL (0.2-1.2); Calc. Creatinine Clearance 119 mL/min (70-130); Calcium 8.5 mg/dL (7.8-10.44); Carbon Dioxide 22 mmol/L (23-31); Chloride 108 mmol/L (98-107); Estimated GFR 95; Globulin 2.9 g/dL (2.4-3.5); Glucose 90 mg/dL (80-115); Potassium 3.3 mmol/L (3.5-5.1); Protein, Total 5.5 g/dL (5.8-8.1); Sodium 140 mmol/L (136-145)
[2024-10-29 12:28] LABS: CK (CPK) 39699 U/L (29-168)
[2024-10-29 21:57] LABS: CK (CPK) 34630 U/L (29-168)
[2024-10-29 21:58] LABS: ALT (SGPT) 200 U/L (8-55); AST (SGOT) 526 U/L (5-34); Albumin 2.5 g/dL (3.4-4.8); Alkaline Phosphatase 57 U/L (40-110); Anion Gap 11 mmol/L (10-20); BUN (Urea Nitrogen) 11 mg/dL (9.8-20.1); Bilirubin, Total 0.9 mg/dL (0.2-1.2); Calc. Creatinine Clearance 103 mL/min (70-130); Calcium 8.7 mg/dL (7.8-10.44); Carbon Dioxide 26 mmol/L (23-31); Chloride 106 mmol/L (98-107); Estimated GFR 85; Globulin 2.8 g/dL (2.4-3.5); Glucose 105 mg/dL (80-115); Potassium 3.5 mmol/L (3.5-5.1); Protein, Total 5.3 g/dL (5.8-8.1); Sodium 139 mmol/L (136-145)
[2024-10-30 04:30] LABS: #Basophils 0.03 10x3/uL (0.0-0.2); %Basophils 0.3 % (0.0-1.0); %Eosinophils 2.3 % (0.0-10.0); %Lymphocytes 15.5 % (21.0-51.0); %Monocytes 6.8 % (0.0-10.0); %Neutrophils 74.1 % (42.0-75.0); Hematocrit 30.8 % (36.0-47.0); Mean Corpuscular HGB CONC 32.5 g/dL (32.0-36.0); Mean Corpuscular Hemoglobin 28.9 pg (27.0-31.0); Platelet Count 160 10x3/uL (130-400); RBC Distribution Width 13.8 % (11.5-14.5); Red Blood Cell (RBC) Count 3.46 mill/uL (4.20-5.40)
[2024-10-30 05:08] LABS: CK (CPK) 28992 U/L (29-168)
[2024-10-30 05:28] LABS: ALT (SGPT) 196 U/L (8-55); AST (SGOT) 457 U/L (5-34); Albumin 2.4 g/dL (3.4-4.8); Alkaline Phosphatase 45 U/L (40-110); Anion Gap 10 mmol/L (10-20); BUN (Urea Nitrogen) 11 mg/dL (9.8-20.1); Calc. Creatinine Clearance 114 mL/min (70-130); Calcium 8.4 mg/dL (7.8-10.44); Carbon Dioxide 26 mmol/L (23-31); Chloride 106 mmol/L (98-107); Estimated GFR 94; Globulin 2.4 g/dL (2.4-3.5); Glucose 93 mg/dL (80-115); Potassium 3.3 mmol/L (3.5-5.1); Protein, Total 4.8 g/dL (5.8-8.1); Sodium 139 mmol/L (136-145)
[2024-10-31 04:06] LABS: #Basophils 0.04 10x3/uL (0.0-0.2); %Basophils 0.4 % (0.0-1.0); %Eosinophils 3.2 % (0.0-10.0); %Lymphocytes 18.5 % (21.0-51.0); %Monocytes 6.1 % (0.0-10.0); %Neutrophils 69.6 % (42.0-75.0); Hematocrit 30.4 % (36.0-47.0); Hemoglobin 9.8 g/dL (12.0-16.0); Mean Corpuscular HGB CONC 32.2 g/dL (32.0-36.0); Mean Corpuscular Hemoglobin 28.5 pg (27.0-31.0); Mean Corpuscular Volume 88.4 fL (78.0-98.0); Platelet Count 158 10x3/uL (130-400); RBC Distribution Width 13.8 % (11.5-14.5); Red Blood Cell (RBC) Count 3.44 mill/uL (4.20-5.40)
[2024-10-31 06:59] LABS: ALT (SGPT) 159 U/L (8-55); AST (SGOT) 297 U/L (5-34); Albumin 2.1 g/dL (3.4-4.8); Alkaline Phosphatase 42 U/L (40-110); Anion Gap 11 mmol/L (10-20); BUN (Urea Nitrogen) 11 mg/dL (9.8-20.1); Bilirubin, Total 0.9 mg/dL (0.2-1.2); Calc. Creatinine Clearance 124 mL/min (70-130); Calcium 8.2 mg/dL (7.8-10.44); Carbon Dioxide 25 mmol/L (23-31); Chloride 105 mmol/L (98-107); Estimated GFR 95; Globulin 2.3 g/dL (2.4-3.5); Glucose 98 mg/dL (80-115); Protein, Total 4.4 g/dL (5.8-8.1); Sodium 138 mmol/L (136-145)
[2024-10-31 07:54] LABS: CK (CPK) 17130 U/L (29-168)
[2024-10-31] MEDS: Potassium Chloride 20 MEQ TAB PO SCH (09:28)
[2024-10-31] MEDS: Lactated Ringer's 1,000 ML IV SCH (09:45)
[2024-10-31] MEDS: Ibuprofen 800 MG TAB PO PRN (14:34)
[2024-10-31 16:36] LABS: Anion Gap 12 mmol/L (10-20); BUN (Urea Nitrogen) 11 mg/dL (9.8-20.1); Calc. Creatinine Clearance 113 mL/min (70-130); Calcium 8.3 mg/dL (7.8-10.44); Carbon Dioxide 26 mmol/L (23-31); Chloride 105 mmol/L (98-107); Estimated GFR 92; Glucose 99 mg/dL (80-115); Potassium 3.3 mmol/L (3.5-5.1); Sodium 140 mmol/L (136-145)
[2024-10-31 22:08] LABS: Bacteria/HPF None Seen HPF (None Seen); Bilirubin Negative (Negative); Blood, Urine Trace (Negative); Clarity Clear (Clear); Glucose, Urine (Dipstick) Normal (Negative); Ketone, Urine Negative (Negative); Leukocyte 25 Leu/uL (Negative); Nitrite Negative (Negative); Protein, Urine (Dipstick) Negative (Neg-Trace); RBC/HPF 0-3 HPF (0-3); Specific Gravity, Urine 1.017 (1.002-1.036); Squamous Epithelial None Seen HPF (0-3); Urobilinogen 3 mg/dL (Less than 2); WBC/HPF 0-3 HPF (0-3)
[2024-11-01 05:33] LABS: Hematocrit 29.1 % (36.0-47.0); Hemoglobin 9.5 g/dL (12.0-16.0); Mean Corpuscular HGB CONC 32.6 g/dL (32.0-36.0); Mean Corpuscular Volume 88.7 fL (78.0-98.0); Mean Platelet Volume 10.1 fL (7.4-10.4); Platelet Count 167 10x3/uL (130-400); RBC Distribution Width 13.8 % (11.5-14.5); Red Blood Cell (RBC) Count 3.28 mill/uL (4.20-5.40)
[2024-11-01 05:49] LABS: ALT (SGPT) 148 U/L (8-55); AST (SGOT) 216 U/L (5-34); Albumin 2.1 g/dL (3.4-4.8); Alkaline Phosphatase 50 U/L (40-110); Anion Gap 10 mmol/L (10-20); BUN (Urea Nitrogen) 12 mg/dL (9.8-20.1); Calc. Creatinine Clearance 120 mL/min (70-130); Calcium 7.9 mg/dL (7.8-10.44); Carbon Dioxide 26 mmol/L (23-31); Chloride 107 mmol/L (98-107); Estimated GFR 95; Glucose 97 mg/dL (80-115); Potassium 3.3 mmol/L (3.5-5.1); Protein, Total 4.1 g/dL (5.8-8.1); Sodium 140 mmol/L (136-145)
[2024-11-01 06:58] LABS: Anisocytosis SLIGHT = 6-15 cells HPF (0-5); Band 5 % (5-11); Eosinophils 1 % (0-10); Lymphocytes 7 % (21-51); Macrocytosis SLIGHT = 6-15 cells HPF (0-5); Metamyelocyte 2 % (0-0); Monocytes 5 % (0-10); Neutrophil 78 % (42-75); Ovalocytes SLIGHT = 2-5 cells HPF (0-1); Platelet Adequacy Comment Platelets Normal; Polychromasia SLIGHT = 2-3 cells HPF (0-2); Smudge Cells 5.9 %
[2024-11-01] MEDS: Potassium Chloride 20 MEQ TAB PO SCH (09:18)
[2024-11-01 15:40] LABS: Bilirubin Negative (Negative); Blood, Urine 2+ (Negative); Clarity Turbid (Clear); Glucose, Urine (Dipstick) Normal (Negative); Ketone, Urine Negative (Negative); Leukocyte 500 Leu/uL (Negative); Nitrite Negative (Negative); Protein, Urine (Dipstick) Negative (Neg-Trace); Specific Gravity, Urine 1.012 (1.002-1.036); Urobilinogen Normal mg/dL (Less than 2); WBC/HPF 21-50 HPF (0-3); pH, Urine 7.5 (5.0-9.0)
[2024-11-01 15:41] LABS: Bacteria/HPF 1+ HPF (None Seen)
[2024-11-02 03:57] LABS: #Basophils 0.03 10x3/uL (0.0-0.2); %Basophils 0.3 % (0.0-1.0); %Eosinophils 2.4 % (0.0-10.0); %Lymphocytes 11.5 % (21.0-51.0); %Monocytes 5.9 % (0.0-10.0); %Neutrophils 75.5 % (42.0-75.0); Hematocrit 28.7 % (36.0-47.0); Hemoglobin 9.2 g/dL (12.0-16.0); Mean Corpuscular HGB CONC 32.1 g/dL (32.0-36.0); Mean Corpuscular Hemoglobin 29.2 pg (27.0-31.0); Mean Corpuscular Volume 91.1 fL (78.0-98.0); Mean Platelet Volume 9.9 fL (7.4-10.4); Platelet Count 164 10x3/uL (130-400); RBC Distribution Width 14.1 % (11.5-14.5); Red Blood Cell (RBC) Count 3.15 mill/uL (4.20-5.40)
[2024-11-02 04:35] LABS: ALT (SGPT) 148 U/L (8-55); AST (SGOT) 167 U/L (5-34); Albumin 2.2 g/dL (3.4-4.8); Alkaline Phosphatase 54 U/L (40-110); Anion Gap 12 mmol/L (10-20); BUN (Urea Nitrogen) 15 mg/dL (9.8-20.1); Bilirubin, Total 1.3 mg/dL (0.2-1.2); Calc. Creatinine Clearance 130 mL/min (70-130); Calcium 8.2 mg/dL (7.8-10.44); Carbon Dioxide 23 mmol/L (23-31); Chloride 108 mmol/L (98-107); Estimated GFR 96; Globulin 2.3 g/dL (2.4-3.5); Glucose 104 mg/dL (80-115); Potassium 3.6 mmol/L (3.5-5.1); Protein, Total 4.5 g/dL (5.8-8.1); Sodium 139 mmol/L (136-145)
[2024-11-02] MEDS: Gentamicin 80 MG/2 ML VIAL IM SCH (14:14)
[2024-11-03 08:14] LABS: ALT (SGPT) 139 U/L (8-55); AST (SGOT) 123 U/L (5-34); Albumin 2.7 g/dL (3.4-4.8); Alkaline Phosphatase 50 U/L (40-110); Anion Gap 12 mmol/L (10-20); BUN (Urea Nitrogen) 15 mg/dL (9.8-20.1); Bilirubin, Total 1.4 mg/dL (0.2-1.2); Calc. Creatinine Clearance 118 mL/min (70-130); Calcium 8.8 mg/dL (7.8-10.44); Carbon Dioxide 23 mmol/L (23-31); Chloride 109 mmol/L (98-107); Estimated GFR 94; Globulin 2.7 g/dL (2.4-3.5); Glucose 91 mg/dL (80-115); Potassium 3.7 mmol/L (3.5-5.1); Protein, Total 5.4 g/dL (5.8-8.1); Sodium 140 mmol/L (136-145)
[2024-11-03 08:26] LABS: Hematocrit 33.8 % (36.0-47.0); Hemoglobin 10.8 g/dL (12.0-16.0); Mean Corpuscular Hemoglobin 28.9 pg (27.0-31.0); Mean Corpuscular Volume 90.4 fL (78.0-98.0); Platelet Count 186 10x3/uL (130-400); RBC Distribution Width 14.6 % (11.5-14.5); Red Blood Cell (RBC) Count 3.74 mill/uL (4.20-5.40)
[2024-11-03 10:10] LABS: Band 3 % (5-11); Burr Cells SLIGHT = 2-5 cells HPF (0-1); Eosinophils 6 % (0-10); Lymphocytes 7 % (21-51); Monocytes 5 % (0-10); Neutrophil 79 % (42-75); Platelet Adequacy Comment Platelets Normal; Polychromasia SLIGHT = 2-3 cells HPF (0-2)
[2024-11-03 12:35] VITALS: TEMP 98.1
[2024-11-03 16:44] VITALS: BP 103/63
== END 2024-11-03 18:46 | DRG 557 ==
LOC: PCU 17:50 → OBSVTOIN 18:49
PROVIDERS: ADMIT Family Medicine; ATTEND Family Medicine
DX: M62.82 Rhabdomyolysis (principal); I21.A1 Myocardial infarction type 2; N39.0 Urinary tract infection, site not specified; E87.6 Hypokalemia; S40.212A Abrasion of left shoulder, initial encounter; W18.30XA Fall on same level, unspecified, initial encounter; G20.A1 Parkinson's disease without dyskinesia, without mention of fluctuations; G25.81 Restless legs syndrome; I10 Essential (primary) hypertension; K21.9 Gastro-esophageal reflux disease without esophagitis; Z88.8 Allergy status to other drugs, medicaments and biological substances; Z79.899 Other long term (current) drug therapy; Z90.49 Acquired absence of other specified parts of digestive tract; Z98.51 Tubal ligation status
CPT/HCPCS: 36415; 72170; 80053; 80306; 81001; 81003; 81015; 82550; 83735; 84100; 84550; 85025; 85610; 85730; 87077; 87086; 87186; 97139; J1580; J1650; J7120